=== PATIENT | male | born 1965 | race Caucasian/White ===

== ENCOUNTER 2020-05-06 18:03 | Emergency (ER) | payer OTHER, SELFPAY ==
[2020-05-06 18:13] VITALS: BP 129/75; PULSE 66; RESP 16; TEMP 36.3; O2SAT 99
--- NOTE | 2020-05-06 19:08 | ED.URI ---
HPI - URI/Sore Throat General Chief Complaint: Upper Respiratory Infection Stated Complaint: Sinus Infection Time Seen by Provider: 05/06/20 18:49 Source: patient and RN notes reviewed Mode of arrival: ambulatory Limitations: no limitations History of Present Illness HPI Narrative: Patient presents today complaining of a 5-day history of rhinorrhea, nasal congestion and pressure, cough. Denies fever, shortness of breath, sore throat, ear pain. He has been trying Mucinex without relief. Related Data Home Medications Medication Instructions Recorded Confirmed No Home Medications 05/06/20 05/06/20 Allergies Allergy/AdvReac Type Severity Reaction Status Date / Time morphine AdvReac Severe Nausea and Verified 05/06/20 18:21 Vomiting Review of Systems Review of Systems: Narrative: CONSTITUTIONAL: Denies body aches, fever, chills, or sweats. EYES: Denies visual changes, redness, or discharge. ENT: Denies sore throat, or otalgia. + Congestion, rhinorrhea, sinus pressure CARDIOVASCULAR: Denies chest pain, palpitations, or edema. RESPIRATORY: Denies dyspnea. + Cough GASTROINTESTINAL: Denies abdominal pain, nausea, vomiting, or diarrhea. GENITOURINARY: Denies dysuria or hematuria. SKIN: Denies rash, itching, or wounds. MUSCULOSKELETAL: Denies back pain, joint pain, or myalgia. NEUROLOGIC: Denies headache, numbness, tingling, or weakness. PSYCH: Denies depression or anxiety. [facility] Family History Family History (Updated 10/21/16 @ 23:56 by DOCTOR UNKNOWN) Father Family history of premature coronary heart disease, Onset Age: 65 Patient's father is Mother Hypertension Family history of elevated blood lipids Family history of coronary artery disease Social History Social History Smoking status: Former smoker Second hand tobacco smoke exposure: Yes Smoking end date: 07/17/01 Alcohol intake: never Gender identity (if verbalized by the patient): Male Comments At time of signature, I have reviewed and agree with nursing past medical, surgical, social and family history unless otherwise noted. Please see nursing chart for further information. There is no relevant family history pertinent to the presenting complaint Exam Narrative: Exam Narrative: GENERAL: Well-appearing, well-nourished, and in no acute distress. HEAD: Normocephalic, atraumatic. EYES: EOMI. No redness or drainage. Conjunctivae normal. ENT: Mucous membranes pink and moist. Nares congested with rhinorrhea. Turbinates normal. TMs normal bilaterally. Throat normal. Uvula midline. NECK: Normal AROM. Supple. No lymphadenopathy. CHEST: No respiratory distress. Clear to auscultation. HEART: Regular rate and rhythm. No murmur appreciated. Normal peripheral pulses. EXTREMITIES: Normal range of motion. No edema. SKIN: Warm, dry, no rash. Capillary refill normal. Normal skin turgor. NEURO: No focal deficits. Alert and oriented x3. Gait steady. PSYCH: Normal affect. No signs of depression or anxiety. Course Vital Signs Vital signs: Vital Signs Temperature 97.4 F L 05/06/20 18:13 Pulse Rate 66 05/06/20 18:13 Respiratory Rate 16 05/06/20 18:13 Blood Pressure 129/75 05/06/20 18:13 Pulse Oximetry 99 05/06/20 18:13 Temperature 97.4 F L 05/06/20 18:13 Pulse Rate 66 05/06/20 18:13 Respiratory Rate 16 05/06/20 18:13 Blood Pressure 129/75 05/06/20 18:13 Pulse Oximetry 99 05/06/20 18:13 Reviewed. Pt has been instructed to follow up with his PCP regarding his elevated blood pressure today. MDM - URI/Sore Throat Differential Diagnosis Differential diagnosis: Likely upper respiratory infection, otitis media, sinusitis, viral infection, bronchitis and pharyngitis Critical Care Time Critical Care Time Critical Care Time: No Discharge Plan Discharge Clinical Impression: Acute rhinitis Patient Disposition: Home, Self-Care Condition: Stable Instructions: Allergic Rh
== END 2020-05-06 19:12 | disposition home or self-care (01) ==
PROVIDERS: Emergency Provider Nurse Practitioner; PCP Family Medicine
DX: J00 Acute nasopharyngitis [common cold] (principal); Z87.891 Personal history of nicotine dependence
CPT/HCPCS: 99211; G0463

== ENCOUNTER 2025-07-02 10:32 | Outpatient (CLI) | payer BC, SELFPAY ==
--- NOTE | 2025-07-02 10:37 | EST_ITS ---
Patient Info Name: Miguel Angel Aguirre Age: 60 years : 1965 Gender: Male Ht: 72 in Wt: 165 lbs BSA: 1.95 m2 HR: 56 bpm BP: 107 / 68 mmHg Exam Date: 07/02/2025 10:37 AM Patient Status: O Admit Date: 07/02/2025 Exam Type: CA stress test treadmill A treadmill exercise stress test was performed. Staff Attending Provider: Sabina Matias Exercise Technologist: Staci Alvarez Exercise Physician: Angelo Haider DO Summary 1. 1. Negative Kiran exercise stress test for ischemic ST changes by ECG criteria. 2. 2. Reduced functional capacity, achieving 7 METs of workload. 3. 3. Appropriate HR response to exercise. 4. 4. Appropriate HR recovery at 1 minute post exercise. 5. 5. No imaging with stress testing. 6. 6. Patient informed of the above results. Protocol: Kiran Stress ECG Details Stage: REST Duration (min): 0 min : 55 sec Speed (mph): 0.0 Grade (%): 0 HR (bpm): 56 SBP (mmHg): 107 DBP (mmHg): 68 METS: --- Stage: REST Duration (min): 5 min : 38 sec Speed (mph): 0.0 Grade (%): 0 HR (bpm): 85 SBP (mmHg): 107 DBP (mmHg): 68 METS: --- Stage: STAGE 1 Duration (min): 1 min : 0 sec Speed (mph): 1.7 Grade (%): 10 HR (bpm): 108 SBP (mmHg): 107 DBP (mmHg): 68 METS: --- Stage: STAGE 1 Duration (min): 2 min : 0 sec Speed (mph): 1.7 Grade (%): 10 HR (bpm): 122 SBP (mmHg): 107 DBP (mmHg): 68 METS: --- Stage: STAGE 1 Duration (min): 3 min : 0 sec Speed (mph): 1.7 Grade (%): 10 HR (bpm): 127 SBP (mmHg): 182 DBP (mmHg): 79 METS: --- Stage: STAGE 2 Duration (min): 1 min : 0 sec Speed (mph): 2.5 Grade (%): 12 HR (bpm): 134 SBP (mmHg): 182 DBP (mmHg): 79 METS: --- Stage: STAGE 2 Duration (min): 2 min : 0 sec Speed (mph): 2.5 Grade (%): 12 HR (bpm): 143 SBP (mmHg): 195 DBP (mmHg): 82 METS: --- Stage: STAGE 2 Duration (min): 2 min : 0 sec Speed (mph): 2.5 Grade (%): 12 HR (bpm): 143 SBP (mmHg): 195 DBP (mmHg): 82 METS: --- Stage: RECOVERY Duration (min): 0 min : 59 sec Speed (mph): 0.0 Grade (%): 0 HR (bpm): 115 SBP (mmHg): 195 DBP (mmHg): 82 METS: --- Stage: RECOVERY Duration (min): 1 min : 59 sec Speed (mph): 0.0 Grade (%): 0 HR (bpm): 98 SBP (mmHg): 195 DBP (mmHg): 82 METS: --- Stage: RECOVERY Duration (min): 2 min : 59 sec Speed (mph): 0.0 Grade (%): 0 HR (bpm): 85 SBP (mmHg): 195 DBP (mmHg): 82 METS: --- Stage: RECOVERY Duration (min): 3 min : 59 sec Speed (mph): 0.0 Grade (%): 0 HR (bpm): 81 SBP (mmHg): 129 DBP (mmHg): 48 METS: --- Stage: RECOVERY Duration (min): 4 min : 59 sec Speed (mph): 0.0 Grade (%): 0 HR (bpm): 78 SBP (mmHg): 121 DBP (mmHg): 48 METS: --- Stage: RECOVERY Duration (min): 5 min : 49 sec Speed (mph): 0.0 Grade (%): 0 HR (bpm): 82 SBP (mmHg): 121 DBP (mmHg): 48 METS: --- Rest HR: 85 bpm Peak HR: 143 bpm Rest Sys BP: 107 mmHg Peak Sys BP: 195 mmHg Max Pred HR: 160 bpm % Max Pred HR: 89 % Target HR: 136 bpm Max RPP: 27,885 bpm*mmHg Ch Score: -5 Termination Reason: Reached target heart rate or workload Cardiac Symptoms: Shortness of breath Max ST Seg Deviation: 2.00 mm Total Time: 5 min : 0 sec Rest Mai BP: 68 mmHg Peak Mai BP: 82 mmHg Angina Score: None Total METS: 7.1 Resting ECG Sinus rhythm. Stress ECG No ST changes. Arrhythmias None. Report Signatures
--- OUTSIDE RECORDS SUMMARY | 2025-07-02 12:29 | XMS_ITS | Clinical Summary ---
Author Organization [facility] Address [facility] [place] [address] Care Team Providers Care Game Programmer Name Role Phone Maryann Zuñiga MD Primary Care Provider [phone] Allergies Active Allergy Reactions Criticality Noted Date Comments Morphine Nausea and Vomiting Low 03/11/2021 Medications No known medications Active Problems Problem Noted Date Diagnosed Date Chest pain 07/23/2024 Immunizations Immunization Administration Dates Next Due Tdap (Boostrix) 07/13/2022 Family History Medical History Relation Comments No Known Problems Father Heart Disease Mother x2 Relation Status Comments Father Mother Alive Social History Tobacco Use Types Packs/Day Years Used Date Smoking Tobacco: Former Cigarettes Q uit: 1994 Passive Smoke Exposure: Past Smokeless Tobacco: Never Tobacco Cessation:Counseling Given: No Comments:Former, Quit 1994 Alcohol Use Standard Drinks/Week Comments Not Currently 0 (1 standard drink = 0.6 oz pur e alcohol) None [facility] Utilities Answer Date Recorded In the past 12 months has [facility] CarePayment, gas, oil, or water OrderAhead threatened to shut off services in your home? No 07/23/2024 Humiliation, Afraid, Rape, and Kick questionnair e Answer Date Recorded Within the last year, have y ou been afraid of your partner or ex-partner? No 07/23/2024 Within the last year, have y ou been humiliated or emotionally abused in other ways by your partner or ex-partner? No Within the last year, have y ou been kicked, hit, slapped, or otherwise physically hurt by your partner or ex-partner? No 07/23/2024 Within the last year, have y ou been raped or forced to have any kind of sexual activity by your partner or ex-partner? No 07/23/2024 AUDIT-C Answer Date Recorded Q1: How often do you have a drink containing alcohol? Never 07/23/2024 Q2: How many drinks containi ng alcohol do you have on a typical day when you are drinking? Patient does not drink Q3: How often do you have si x or more drinks on one occasion? Never 07/23/2024 Overall Financial Resource Strain (CARDIA) Answe r Date Recorded How hard is it for you to pa y for the very basics like food, housing, medical care, and heating? Not hard at all 07/23/2024 PHQ-2 Answer Date Recorded Patient Health Questionnaire-2 Score 0 08/18/2022 [facility] - Occupational Stress Questionnaire Answer Date Recorded Do you feel stress - tense, restless, nervous, or anxious, or unable to sleep at night because your mind is troubled all the time - these days? Not at all 07/23/2024 Hunger Vital Sign Answer Date Recorded Within the past 12 months, y ou worried that your food would run out before you got the money to buy more. Sometimes true Within the past 12 months, t he food you bought just didn't last and you didn't have money to get more. Sometimes true 01/2025 PRAPARE - Transportation Answer Date Re corded In the past 12 months, has l ack of transportation kept you from medical appointments or from getting medications? No 01/2025 In the past 12 months, has l ack of transportation kept you from meetings, work, or from getting things needed for daily living? No 07/23/2024 Housing Stability Vital Sign Answer Attila e Recorded In the last 12 months, was t here a time when you were not able to pay the mortgage or rent on time? No 07/23/2024 In the past 12 months, how m any times have you moved where you were living? 0 07/23/2024 At any time in the past 12 m [facility], were you homeless or living in a nursing home (including now)? No 07/23/2024 Sex and Gender Information Value Date Recorded Sex Assigned at Not on file Legal Sex Male 6:38 PM CDT Gender Identity Not on file Sexual Orientation Not on file Last Filed Vital Signs Vital Sign Reading Time Taken Comments Blood Pressure 102/76 07/24/2024 7:33 AM WEED CUTTER Pulse 83 07/24/2024 7:33 AM WEED CUTTER Temperature 37.1 C (98.8 F) 07/24/2024 7:33 AM WEED CUTTER Respiratory Rate 18 07/24/2024 7:33 AM WEED CUTTER Oxygen Saturation 97% 07/24/2024 7:33 AM WEED CUTTER Inhaled Oxygen Concentration - - Weight 75.4 kg (166 lb 4.8 oz) 07/24/2024 4:09 A M WEED CUTTER Height 182.9 cm (6') 07/23/2024 3:45 PM WEED CUTTER Body Mass Index 22.55 07/23/2024 3:45 PM WEED CUTTER Plan of Treatment Health Maintenance Due Date Last Done Comments Colorectal Cancer Screening Colonoscopy (10 Years) 1965 Annual Physical 1968 Hepatitis C 1983 Pneumococcal Vaccine: 50+ Ye ars (1 of 1 - PCV) 2015 Zoster Vaccines (1 of 2) 2015 COVID-19 Vaccine (1 - 2024-2 6 season) 2025 Influenza Adult (#1) 2025 DTaP, Tdap and Td Vaccines ( 2 - Td or Tdap) 07/13/2032 07/13/2022 RSV Immunization or 60+ Years (1 - 1-dose 75+ series) 2040 Hepatitis A Vaccines Aged Out No long er eligible based on patient's age to complete this topic Meningococcal B Vaccine Aged Out No l onger eligible based on patient's age to complete this topic Meningococcal Vaccine Aged Out No jacquelin sixto eligible based on patient's age to complete this topic RSV Immunizations Under 20 Months Aged Out No longer eligible based on patient's age to complete this topic Goals Goal Patient Goal Type Associated Problems Recent Progress Patient-Stated? Author Medications - able to self-administer medications Lifestyle Surekha Pereira RN Medical Devices Implanted Type Area Archaeology Professor Device Identifier Shelf Expiration Date Model / Serial / Lot Graft Bone Canc 5ml Chip - [id number] Implanted:Qty: 1 on 07/22/2022 by Omid Montoya MD at [facility] Bone Left: Finger [employer] [id number] 04/16/2027 [id number] / / [id number] [place]ock Plate 4x2h, 10.8 Implanted:Qty: 1 on 07/22/2022 by Omid Montoya MD at [facility] Plate Left: Thumb MEDARTIS [id number] / 1.5 Locking Screw 07mm Implanted:Qty: 1 on 07/22/2022 by Omid Montoya MD at [facility] Screw Left: Thumb MEDARTIS [id number]/ 1.5 Locking Screw 10mm Implanted:Qty: 2 on 07/22/2022 by Omid Motnoya MD at [facility] Screw Left: Thumb MEDARTIS [id number] 1.5 Locking Screw 11mm Implanted:Qty: 1 on 07/22/2022 by Omid Montoya MD at [facility] Screw Left: Thumb MEDARTIS [id number]/ 1.5 Locking Screw 8mm Implanted:Qty: 2 on 07/22/2022 by Omid Montoya MD at [facility] Screw Left: Thumb MEDARTIS [id number]/14 / Insurance [facility] Advance Directives * Full Code (Latest Code Status on File) Date Activated Date Inactivated Comments 07/23/2024 7:08 PM 07/24/2024 3:03 PM Care Teams Game Programmer Relationship Specialty Start Date End Date Maryann Zuñiga MD [id number] [facility] [address] [place] [address] PCP - General FAMILY PRACTICE 06/03/21
--- OUTSIDE RECORDS SUMMARY | 2025-07-02 12:30 | XMS_ITS | Clinical Summary ---
Author Organization [facility] Address [address] [place] [address] Care Team Providers Care Manager Personal Name Role Phone No, Physician Primary Care Provider [phone] Allergies Active Allergy Reactions Criticality Noted Date Comments Morphine Nausea & Vomiting Low 03/11/2021 Medications ondansetron (ZOFRAN) 4 mg tablet Take 1 tablet (4 mg total) by mouth every 8 (eight) hours as needed for nausea or vomiting 20 tablet 03/11/2021 Active HYDROcodone-deborah taminophen (NORCO) 5-325 mg per tabletIndicatio ns:Pain Take 1 tablet by mouth every 6 (six) hours as needed for pain 8 tablet 03/11/2021 Active phenazopyridine (Pyridium) 100 mg tablet Take 1 tablet (100 mg total) by mouth 3 (three) times a day as needed for urinary pain 15 tablet 04/10/2021 Active Active Problems No known active problems Social History Tobacco Use Types Packs/Day Years Used Date Smoking Tobacco: Unknown Sex and Gender Information Value Date Recorded Sex Assigned at Not on file 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 Gender Identity Not on file Sexual Orientation Not on file Last Filed Vital Signs Vital Sign Reading Time Taken Comments Blood Pressure 124/80 04/10/2021 11:00 AM CDT Pulse 76 04/10/2021 11:00 AM CDT Temperature 36.9 C (98.4 F) 04/10/2021 11:00 AM CDT Respiratory Rate 18 04/10/2021 11:0 0 AM CDT Oxygen Saturation 99% 04/10/2021 11: 00 AM CDT Inhaled Oxygen Concentration - - Weight 75.2 kg (165 lb 12.6 oz) 04/10/2021 4:16 AM CDT Height 182.9 cm (6') 04/10/2021 4:16 AM CDT Body Mass Index 22.48 04/10/2021 4:16 AM CDT Plan of Treatment Not on file Medical Devices Explanted Type Area Commodities Clerk Device Identifier Shelf Expiration Date Model / Serial / Lot [employer] [id number] Universa 6fr 24cm [employer] Graduate [employer] Monofilament Tether - [id number] Implanted:Qty: 1 on 04/10/2021 by Haroldo Moser MD at [facility] Explanted:Qty: 1 on 04/23/2021 Right: Urethra [employer] [id number] 12/16/2023 [id number] / / [id number] Insurance [facility]/PPO Address: [address] [address] [facility] CHOICE PLUS [facility]/PPO Address: [address] [place] [address] Care Teams Manager Personal Relationship Specialty Start Date End Date No, Physician PCP - General 03/11/21
== END 2025-07-02 10:33 | disposition home or self-care (01) ==
LOC: ANHCARD 10:33
PROVIDERS: PCP Family Medicine
DX: R07.9 Chest pain, unspecified (principal)
CPT/HCPCS: 93017